=== PATIENT | female | born 1990 | race Caucasian/White ===

== ENCOUNTER 2021-04-11 22:40 | Emergency (ER) | payer BC ==
[~2021-04-11] VITALS: Ht 157.5 cm; Wt 59.0 kg
[2021-04-11 23:21] LABS: ABSOLUTE NEUTROPHILS 5.2 thou/uL (1.4-8.2); BASOPHILS 0.3 % (0.0-2.0); EOSINOPHILS 0.7 % (0.0-3.0); HEMATOCRIT 37.4 % (37.0-47.0); HEMOGLOBIN 12.9 gm/dL (12.0-15.0); LYMPHOCYTES 19.8 % (24.0-44.0); MCH 30.2 pg (26.0-34.0); MCHC 34.6 g/dL (28.0-37.0); MCV 87.3 fL (80.0-100.0); MONOCYTES 6.8 % (1.0-8.0); PLATELET COUNT 236 thou/uL (150-400); POLYS 72.4 % (36.0-66.0); RBC 4.28 mil/uL (4.20-5.00); RDW 12.8 % (10.5-14.5); WBC 7.1 thou/uL (4.0-11.0)
[2021-04-11 23:35] LABS: ANION GAP 10 mmol/L (7-16); BUN 10 mg/dL (7-18); CALCIUM 8.7 mg/dL (8.5-10.1); CHLORIDE 106 mmol/L (98-107); CO2 25 mmol/L (21-32); CREATININE 0.8 mg/dL (0.6-1.0); GLUCOSE 97 mg/dL (74-106); POTASSIUM 3.8 mmol/L (3.5-5.1); SODIUM 141 mmol/L (136-145)
[2021-04-11 23:44] LABS: TROPONIN-I <0.06 ng/mL (<0.06)
[2021-04-12 00:55] LABS: URINE BILIRUBIN NEGATIVE (Negative); URINE BLOOD NEGATIVE (Negative); URINE CLARITY CLEAR; URINE COLOR YELLOW; URINE GLUCOSE-RANDOM* NEGATIVE (Negative); URINE KETONES 3+ (Negative); URINE NITRITE-REFLEX NEGATIVE (Negative); URINE PROTEIN (DIPSTICK) NEGATIVE (Negative); URINE UROBILINOGEN 0.2 E.U./dl (0.2-1.0)
[2021-04-12 00:59] LABS: URINE LEUKOCYTES-REFLEX 1+ (Negative)
[2021-04-12 01:00] VITALS: BP 121/76
[2021-04-12 01:05] LABS: BACTERIA-REFLEX 1-9 Few /HPF (None Seen); CASTS None Seen /LPF (None Seen); CRYSTALS None Seen /LPF (None Seen); MUCUS 0-3 Light strn/LPF (None Seen); SQUAMOUS 4-10 Moderate /LPF (0-3); URINE RBC 1-2 Rare /HPF (NONE SEEN); URINE WBC-REFLEX 6-15 Few /HPF (0-5)
[2021-04-12 01:07] LABS: AMP/METHAMP Negative (Negative); BARBITURATES Negative (Negative); BENZODIAZEPINES Negative (Negative); COCAINE Negative (Negative); METHADONE Negative (Negative); OPIATES Negative (Negative); PCP Negative (Negative)
--- NOTE | 2021-04-12 07:31 | EKG ---
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[employer]: [employer] : 1990 Requested By: Huyen Cosme Order Number: [id number] MD: Gera Walsh Measurements Intervals [place] Rate: 85 P: 86 AK: 164 QRS: 14 QRSD: 134 T: 36 QT: 397 QTc: 472 Interpretive Statements Atrial-sensed ventricular-paced rhythm No further analysis attempted due to paced rhythm Artifact in lead(s) I,II,III,aVL,aVF No previous ECG available for comparison Electronically Signed On 04-12-2021 7:31:21 CDT by Gera Walsh [email or web address] <ELECTRONICALLY SIGNED> By: Gera Walsh MD, [facility] 04/12/21 0731 [id number] Gera Walsh MD, [facility] /EPI
== END 2021-04-12 01:00 | disposition home or self-care (01) ==
LOC: ER 22:40
PROVIDERS: Emergency Medicine
DX: R07.89 Other chest pain (principal); F22 Delusional disorders